=== PATIENT | male | born 1955 ===

== ENCOUNTER 2021-04-01 08:20 | Outpatient (CLI) | payer MEDICARE | END 2021-04-01 08:21 | disposition home or self-care (01) | LOC: BICULT 08:20 | PROVIDERS: ATTEND Nurse Practitioner Family | DX: R79.89 Other specified abnormal findings of blood chemistry (principal); E11.9 Type 2 diabetes mellitus without complications; R89.9 Unspecified abnormal finding in specimens from other organs, systems and tissues; K76.0 Fatty (change of) liver, not elsewhere classified; R16.1 Splenomegaly, not elsewhere classified | CPT/HCPCS: 76700 ==